=== PATIENT | male | born 1940 | race Caucasian/White ===

== ENCOUNTER → 2016-10-02 | Outpatient (REF) | payer MEDICARE ==
[2016-10-02 13:58] LABS: PHOSPHORUS LEVEL 2.6 MG/DL (2.5-4.9)
== END ==
LOC: M LAB REF 12:40
PROVIDERS: ATTEND Nurse Practitioner Adult Health
DX: N18.3 Chronic kidney disease, stage 3 (moderate) (principal); N25.81 Secondary hyperparathyroidism of renal origin

== ENCOUNTER → 2017-09-25 | Outpatient (REF) | payer MEDICARE ==
[2017-09-25 19:54] LABS: PTH INTACT 44.6 PG/ML (18.5-88.0)
[2017-09-25 20:13] LABS: PHOSPHORUS LEVEL 3.7 MG/DL (2.5-4.9)
== END ==
LOC: M LAB REF 18:06
DX: I12.9 Hypertensive chronic kidney disease with stage 1 through stage 4 chronic kidney disease, or unspecified chronic kidney disease (principal); N25.81 Secondary hyperparathyroidism of renal origin; N18.9 Chronic kidney disease, unspecified
CPT/HCPCS: 84100

== ENCOUNTER → 2018-02-26 | Outpatient (REF) | payer MEDICARE ==
[2018-02-26 19:04] LABS: PHOSPHORUS LEVEL 4.5 MG/DL (2.5-4.9); URIC ACID 9.8 MG/DL (3.5-7.2)
== END ==
LOC: M LAB REF 17:11
DX: N18.4 Chronic kidney disease, stage 4 (severe) (principal); N25.81 Secondary hyperparathyroidism of renal origin
CPT/HCPCS: 84100

== ENCOUNTER 2020-02-15 12:03 | Emergency (ER) | payer MEDICARE ==
[~2020-02-15] VITALS: Ht 175.3 cm; Wt 78.2 kg
[2020-02-15] MEDS ORDERED: SODI650T PO (12:17)
[2020-02-15] MEDS ORDERED: SPIR-10 PO (12:17)
[2020-02-15] MEDS ORDERED: RENATAB6 PO (12:17)
[2020-02-15] MEDS ORDERED: PRAV40TA2 PO (12:17)
[2020-02-15] MEDS ORDERED: AMLO1TAB25 PO (12:17)
[2020-02-15] MEDS ORDERED: FURO20TA2 PO (12:17)
[2020-02-15] MEDS ORDERED: CARV6.25 PO (12:17)
[2020-02-15] MEDS ORDERED: CLON0.2T PO (12:17)
[2020-02-15] MEDS ORDERED: ECOT81TA5 PO (12:17)
--- NOTE | 2020-02-15 12:53 | REPVR ---
PROCEDURE INFORMATION: Exam: XR Right Knee Exam date and time: 02/15/2020 12:42 PM Age: 79 years old Clinical indication: Pain; Knee; Right; Additional info: Knee pain/swelling TECHNIQUE: Imaging protocol: XR Right knee. Views: 4 or more views. COMPARISON: No relevant prior studies available. FINDINGS: Bones/joints: No acute fracture or dislocation is identified. The medial compartment is mildly narrowed and with very mild periarticular osteophyte formation. Soft tissues: Mild fullness of the soft tissues in the suprapatellar region is noted. The soft tissues are mildly swollen anteriorly. Vasculature: Atherosclerotic vascular calcifications are noted. IMPRESSION: 1. Degenerative changes as described. 2. Mild anterior soft tissue swelling with mild suprapatellar soft tissue fullness suggesting effusion and/or synovial hypertrophy. Electronically signed by: Filipe Paul On 02/15/2020 12:53:06 PM
--- NOTE | 2020-02-15 13:51 | REPVR ---
PROCEDURE INFORMATION: Exam: US Duplex Right Lower Extremity Veins, Limited Exam date and time: 02/15/2020 1:45 PM Age: 79 years old Clinical indication: Swelling (edema) of limb; Lower extremity, right; Additional info: R/O dvt rle TECHNIQUE: Imaging protocol: Real-time Duplex ultrasound of the Right Lower Extremity with 2-D zheng scale, color Doppler flow and spectral waveform analysis with image documentation. Limited exam was focused on the right lower extremity veins. COMPARISON: No relevant prior studies available. FINDINGS: Right deep veins: Unremarkable. The common femoral, femoral, proximal profunda femoral and popliteal veins are patent without thrombus. Normal Doppler waveforms. Normal compressibility and/or augmentation response. Right superficial veins: Unremarkable. Saphenofemoral junction is patent without thrombus. Soft tissues: Unremarkable. IMPRESSION: No deep venous thrombus demonstrated in the right lower extremity. Electronically signed by: Filipe Paul On 02/15/2020 13:50:38 PM
[2020-02-15 14:17] VITALS: BP 168/82
== END 2020-02-15 14:21 | disposition home or self-care (01) ==
LOC: M ED 12:03
DX: R22.41 Localized swelling, mass and lump, right lower limb (principal); M17.11 Unilateral primary osteoarthritis, right knee; S83.91XA Sprain of unspecified site of right knee, initial encounter; V49.40XA Driver injured in collision with unspecified motor vehicles in traffic accident, initial encounter; Y92.410 Unspecified street and highway as the place of occurrence of the external cause; I10 Essential (primary) hypertension; E78.5 Hyperlipidemia, unspecified; Z79.899 Other long term (current) drug therapy

== ENCOUNTER → 2020-02-18 | Outpatient (REF) | payer MEDICARE ==
[~2020-02-18] MED LIST: AMLO1TAB25 PO; CARV6.25 PO; CLON0.2T PO; ECOT81TA5 PO; FURO20TA2 PO; PRAV40TA2 PO; RENATAB6 PO; SODI650T PO; SPIR-10 PO
[2020-02-18 13:12] LABS: URIC ACID 8.6 MG/DL (3.5-7.2)
[2020-02-18 13:44] LABS: PTH INTACT 93.1 PG/ML (18.5-88.0)
== END ==
LOC: M LAB REF 12:06
PROVIDERS: ATTEND Nurse Practitioner Adult Health
DX: I12.9 Hypertensive chronic kidney disease with stage 1 through stage 4 chronic kidney disease, or unspecified chronic kidney disease (principal)

== ENCOUNTER → 2022-10-12 | Outpatient (REF) | payer MEDICARE | LOC: M LAB REF 12:11 | PROVIDERS: ATTEND Nurse Practitioner Adult Health | DX: R20.2 Paresthesia of skin (principal) ==

== ENCOUNTER → 2023-11-22 | Outpatient (REF) | payer MEDICARE | LOC: M LAB REF 16:30 | PROVIDERS: ATTEND Nurse Practitioner Family | DX: M10.9 Gout, unspecified (principal) ==